=== PATIENT | male | born 1995 | race Caucasian/White ===

== ENCOUNTER → 2019-03-10 | Outpatient (CLI) | payer OTHER ==
--- NOTE | 2019-03-11 09:56 | XR ---
EXAMINATION TYPE: XR cervical spine comp DATE OF EXAM: 03/10/2019 COMPARISON: None HISTORY: R 52 TECHNIQUE: Five-view cervical spine FINDINGS: Vertebral body alignment is normal. Disc height and vertebral body heights are preserved. P revertebral space is normal. Posterior spinal lamellar line is intact. Foramen are patent. IMPRESSION: 1. Normal 5 view cervical spine
--- NOTE | 2019-03-11 09:57 | XR ---
EXAMINATION TYPE: XR lumbosacral spine min 4V DATE OF EXAM: 03/10/2019 COMPARISON: None HISTORY: R 52 TECHNIQUE: Five-view lumbar spine FINDINGS: There 5 lumbar-type vertebral bodies. The pedicles are intact. Disc heights are preserved. Vertebral body heights are preserved. Alignment is normal. Facets are normal. T12 ribs are rudimentary. IMPRESSION: 1. Normal 5 view lumbar spine
--- NOTE | 2019-03-11 09:58 | XR ---
EXAMINATION TYPE: XR thoracic spine 2V DATE OF EXAM: 03/10/2019 COMPARISON: None HISTORY: R 52 TECHNIQUE: Three-view thoracic spine FINDINGS: There are 12 thoracic-type tubal bodies. Pedicles are intact. Disc heights are preserved. V ertebral body heights are preserved. Alignment is normal. IMPRESSION: 1. Normal thoracic spine.
== END | disposition home or self-care (01) ==
LOC: RADXRMAIN 15:42
PROVIDERS: ATTEND Internal Medicine
DX: M54.2 Cervicalgia (principal); M54.5 Low back pain; M54.6 Pain in thoracic spine
CPT/HCPCS: 72050; 72070; 72110

== ENCOUNTER 2019-04-16 14:34 | Inpatient (IN) | payer OTHER ==
[2019-04-16] MEDS ORDERED: SODIUM CHLORIDE 0.9% 1,000 ML IV STA (15:11)
[2019-04-16] MEDS ORDERED: KETOROLAC 30 MG/ML 1 ML VIAL IVP STA (15:13)
--- NOTE | 2019-04-16 15:41 | ED ---
General Adult HPI - General Source: patient Mode of arrival: ambulatory Limitations: no limitations <Kristie Power - Last Filed: 04/16/19 19:33> <Boy Victoria - Last Filed: 04/17/19 08:52> - General Chief complaint: Shortness of Breath Stated complaint: Back pain Time Seen by Provider: 04/16/19 15:00 - History of Present Illness Initial comments: Patient is a 24-year-old male with past medical history of type 1 diabetes presents to emergency room with upper back pain 2 months and shortness of rusty th 1 week. Patient states he went to his PCP about 2 months ago for upper back pain and was started on anti-inflammatory medications for this but they did not work. Patient denies any trauma to his back. He went back last week to his PCP and was started on a short course of steroids which he states increases pain. He finished the steroids this morning. Patient did have x-rays last month of h is entire spine and showed no acute fractures. Patient states he developed shortness of breath about a week ago after starting the steroids. He states at first it was on and off when he was doing things but the last few days it has been increasing. Patient has been in the ER on multiple occasions for DKA. Patient admits to having to urinate more frequently and being really thirsty the past week. Patient denies fever, chills, chest pain, abdominal pain, nausea, vomiting. (Kristie Power) - Related Data Home Medications Medication Instructions Recorded Confirmed Insulin Aspart [NovoLOG Flexpen] See Protocol SQ AC-TID 04/16/19 04/16/19 Insulin Glargine,Hum.rec.anlog 24 unit SQ HS 04/16/19 04/16/19 [Basaglar Kwikpen U-100] Meloxicam [Mobic] 15 mg PO DAILY 04/16/19 04/16/19 tiZANidine HCL [Zanaflex] 4 mg PO Q8HR PRN 04/16/19 04/16/19 Allergies Allergy/AdvReac Type Severity Reaction Status Date / Time No Known Allergies Allergy Verified 04/16/19 14:56 Review of Systems ROS Other: All systems not noted in ROS Statement are negative. <Kristie Power - Last Filed: 06/29/19 19:33> ROS Other: All systems not noted in ROS Statement are negative. <Boy Victoria - Last Filed: 04/17/19 08:52> ROS Statement: Those systems with pertinent positive or pertinent negative responses have been documented in the HPI. Past Medical History Past Medical History: Diabetes Mellitus Additional Past Medical History / Comment(s): BODY ACHES-DENIED ANY FALLS. legally blind left eye. DX WITH DM AT AGE 3 History of Any Multi-Drug Resistant Organisms: None Reported Past Surgical History: No Surgical Hx Reported Additional Past Surgical History / Comment(s): legally blind left eye. Past Anesthesia/Blood Transfusion Reactions: No Reported Reaction Additional Past Anesthesia/Blood Transfusion Reaction / Comment(s): NEVER HAD ANY AA Past Psychological History: No Psychological Hx Reported Smoking Status: Current every day smoker Past Alcohol Use History: None Reported Past Drug Use History: None Reported - Past Family History Father Family Medical History: No Reported History Additional Family Medical History / Comment(s): pt. unaware of any family history due to growing up in foster care <Kristie Power - Last Filed: 04/16/19 19:33> General Exam Limitations: no limitations <Kristie Power - Last Filed: 04/16/19 19:33> - General Exam Comments Initial Comments: GENERAL: Well-appearing, well-nourished and in no acute distress. HEAD: Atraumatic, normocephalic. EYES: Pupils equal round and reactive to light, extraocular movements intact, sclera anicteric, conjunctiva are normal. ENT: TMs normal, nares patent, oropharynx clear without exudates. Moist mucous membranes. NECK: Normal range of motion, supple without lymphadenopathy or JVD. LUNGS: Breath sounds clear to auscultation bilaterally and equal. No wheezes rales or rhonchi. HEART: Regular rate and rhythm without murmurs, rubs or gallops. ABDOMEN: Soft, nontender, normoactive bowel sounds. No guarding, no rebound. No masses appreciated. : Deferred EXTREMITIES: Pain with palpation of the upper traps bilaterally. Bilateral shoulder range of motion is within normal limits. NEUROLOGICAL: Cranial nerves II through XII grossly intact. Normal speech, norm al gait. PSYCH: Normal mood, normal affect. SKIN: Warm, Dry, normal turgor, no rashes or lesions noted. (Kristie Power) Course Vital Signs 04/16/19 04/16/19 04/16/19 14:39 17:15 19:30 Temperature 97.6 F Pulse Rate 116 H 55 L 67 Pulse Rate [ Left Pulse Oximetery] Respiratory 18 18 16 Rate Blood Pressure 101/61 102/75 106/65 Blood Pressure [Left Arm Supine] O2 Sat by Pulse 98 97 96 Oximetry 04/16/19 04/16/19 21:00 21:03 Temperature 98.4 F 98.5 F Pulse Rate 70 Pulse Rate [ 72 Left Pulse Oximetery] Respiratory 16 16 Rate Blood Pressure 103/60 Blood Pressure 110/62 [Left Arm Supine] O2 Sat by Pulse 95 100 Oximetry Medical Decision Making - Lab Data Result diagrams: 04/16/19 13:50 04/16/19 13:50 <Kristie Power - Last Filed: 04/16/19 19:33> - Lab Data Result diagrams: 04/16/19 13:50 04/16/19 20:40 <Boy Victoria - Last Filed: 04/17/19 08:52> - Medical Decision Making Patient is a 24-year-old male presenting to the ED with shortness of breath 1 week. Patient has been admitted before for DKA. Patient states his PCP put him on steroids for the last week for an upper back pain that he's been dealing with 2 months. Patient admits to an increase in urination and thirst in the last week. CBC is WNL, venous pH is 7.39, sodium is 134, potassium is 3.7, glucose is 722. UA reveals 4+ glucose and 1+ ketones. Acetone is positive. Patient's vital signs have been stable during stay. Chest x-ray is without acute process. Case was discussed with Dr. Victoria. Patient will be admitted and started on insulin drip for headache per her glycemia and DKA. Patient is in agreement with this plan. (Kristie Power) - Lab Data Lab Results 04/16/19 04/16/19 04/16/19 Range/Units 13:50 13:50 13:50 WBC 8.0 (3.8-10.6) k/uL RBC 5.06 (4.30-5.90) m/uL Hgb 14.2 (13.0-17.5) gm/dL Hct 42.5 (39.0-53.0) % MCV 83.9 (80.0-100.0) fL MCH 28.1 (25.0-35.0) pg MCHC 33.5 (31.0-37.0) g/dL RDW 13.7 (11.5-15.5) % Plt Count 299 (150-450) k/uL Neutrophils % 66 % Lymphocytes % 23 % Monocytes % 6 % Eosinophils % 2 % Basophils % 1 % Neutrophils # 5.3 (1.3-7.7) k/uL Lymphocytes # 1.8 (1.0-4.8) k/uL Monocytes # 0.5 (0-1.0) k/uL Eosinophils # 0.1 (0-0.7) k/uL Basophils # 0.1 (0-0.2) k/uL VBG pH 7.39 (7.31-7.41) VBG pCO2 45 (37-51) mmHg VBG HCO3 27 (24-28) mmol/L Sodium 134 L (137-145) mmol/L Potassium 3.7 (3.5-5.1) mmol/L Chloride 99 (98-107) mmol/L Carbon Dioxide 26 (22-30) mmol/L Anion Gap 9 mmol/L BUN 16 (9-20) mg/dL Creatinine 0.51 L (0.66-1.25) mg/dL Est GFR (CKD-EPI)AfAm >90 (>60 ml/min/1.73 sqM) Est GFR (CKD-EPI)NonAf >90 (>60 ml/min/1.73 sqM) Glucose 722 H* (74-99) mg/dL POC Glucose (mg/dL) (75-99) mg/dL POC Glu Loan Originator ID Calcium 8.7 (8.4-10.2) mg/dL Magnesium 1.7 (1.6-2.3) mg/dL Total Bilirubin 0.6 (0.2-1.3) mg/dL AST 11 L (17-59) U/L ALT 17 L (21-72) U/L Alkaline Phosphatase 140 H (38-126) U/L Total Protein 6.2 L (6.3-8.2) g/dL Albumin 3.8 (3.5-5.0) g/dL Acetone, Qual Positive (Negative) 04/16/19 Range/Units 15:58 WBC (3.8-10.6) k/uL RBC (4.30-5.90) m/uL Hgb (13.0-17.5) gm/dL Hct (39.0-53.0) % MCV (80.0-100.0) fL MCH (25.0-35.0) pg MCHC (31.0-37.0) g/dL RDW (11.5-15.5) % Plt Count (150-450) k/uL Neutrophils % % Lymphocytes % % Monocytes % % Eosinophils % % Basophils % % Neutrophils # (1.3-7.7) k/uL Lymphocytes # (1.0-4.8) k/uL Monocytes # (0-1.0) k/uL Eosinophils # (0-0.7) k/uL Basophils # (0-0.2) k/uL VBG pH (7.31-7.41) VBG pCO2 (37-51) mmHg VBG HCO3 (24-28) mmol/L Sodium (137-145) mmol/L Potassium (3.5-5.1) mmol/L Chloride (98-107) mmol/L Carbon Dioxide (22-30) mmol/L Anion Gap mmol/L BUN (9-20) mg/dL Creatinine (0.66-1.25) mg/dL Est GFR (CKD-EPI)AfAm (>60 ml/min/1.73 sqM) Est GFR (CKD-EPI)NonAf (>60 ml/min/1.73 sqM) Glucose (74-99) mg/dL POC Glucose (mg/dL) >600 H (75-99) mg/dL POC Glu Loan Originator ID Shmuel, Alejandro Calcium (8.4-10.2) mg/dL Magnesium (1.6-2.3) mg/dL Total Bilirubin (0.2-1.3) mg/dL AST (17-59) U/L ALT (21-72) U/L Alkaline Phosphatase (38-126) U/L Total Protein (6.3-8.2) g/dL Albumin (3.5-5.0) g/dL Acetone, Qual (Negative) Disposition Is patient prescribed a controlled substance at d/c from ED?: No Decision Date: 04/16/19 Decision Time: 18:00 <Kristie Power - Last Filed: 04/16/19 19:33> <Boy Victoria - Last Filed: 04/17/19 08:52> Clinical Impression: Hyperglycemia due to type 1 diabetes mellitus, Diabetic ketoacidosis Disposition: ADMITTED IP TO THIS HOSP Condition: Stable
[2019-04-16 16:08] LABS: Glucose,Whole Blood >600 mg/dL (75-99)
[2019-04-16 16:22] LABS: Basophils # (A) 0.1 k/uL (0-0.2); Basophils % (A) 1 %; Eosinophils # (A) 0.1 k/uL (0-0.7); Eosinophils % (A) 2 %; HCT 42.5 % (39.0-53.0); HGB 14.2 gm/dL (13.0-17.5); Lymphocytes # (A) 1.8 k/uL (1.0-4.8); Lymphocytes % (A) 23 %; MCH 28.1 pg (25.0-35.0); MCHC 33.5 g/dL (31.0-37.0); MCV 83.9 fL (80.0-100.0); Mean Platelet Volume 7.6; Monocytes # (A) 0.5 k/uL (0-1.0); Monocytes % (A) 6 %; Neutrophils # (A) 5.3 k/uL (1.3-7.7); Neutrophils % (A) 66 %; Platelet Count 299 k/uL (150-450); RBC 5.06 m/uL (4.30-5.90); RDW 13.7 % (11.5-15.5); VBG PH 7.39 (7.31-7.41)
[2019-04-16 16:24] LABS: Appearance,Urine Clear (Clear); Bilirubin,Urine Negative (Negative); Blood,Urine Negative (Negative); Color,Urine Colorless; Glucose,Urine (UA) 4+ (Negative); Ketones,Urine 1+ (Negative); Leukocyte Esterase,Urine Negative (Negative); Nitrite,Urine Negative (Negative); Protein,Urine Negative (Negative); Specific Gravity,Urine 1.036 (1.001-1.035); Urobilinogen,Urine <2.0 mg/dL (<2.0)
[2019-04-16 16:35] LABS: ALT 17 U/L (21-72); AST 11 U/L (17-59); African American GFR (CKD) >90 (>60 ml/min/1.73 sqM); Albumin 3.8 g/dL (3.5-5.0); Alkaline Phosphatase 140 U/L (38-126); Anion Gap 9 mmol/L; Blood Urea Nitrogen 16 mg/dL (9-20); Calcium 8.7 mg/dL (8.4-10.2); Carbon Dioxide 26 mmol/L (22-30); Chloride 99 mmol/L (98-107); Magnesium 1.7 mg/dL (1.6-2.3); Potassium 3.7 mmol/L (3.5-5.1); Sodium 134 mmol/L (137-145); Total Bilirubin 0.6 mg/dL (0.2-1.3); Total Protein 6.2 g/dL (6.3-8.2)
[2019-04-16 16:45] LABS: Glucose 722 mg/dL (74-99)
[2019-04-16] MEDS ORDERED: SODIUM CHLORIDE 0.9% 1,000 ML IV ONE (17:01)
--- NOTE | 2019-04-16 17:14 | XR ---
EXAMINATION TYPE: XR chest 2V DATE OF EXAM: 04/16/2019 COMPARISON: NONE HISTORY: Cough and back pain TECHNIQUE: Frontal and lateral views of the chest are obtained. FINDINGS: There is no focal air space opacity, pleural effusion, or pneumothorax seen. The cardiac silhouette size is within normal limits. The osseous structures are intact. IMPRESSION: No acute cardiopulmonary process.
[2019-04-16] MEDS ORDERED: INSULIN REGULAR 100 UNIT in SODIUM CHLORIDE 0.9% 100 ML IV SCH (18:15)
[2019-04-16 18:54] LABS: Glucose,Whole Blood 327 mg/dL (75-99)
[2019-04-16] MEDS: SODIUM CHLORIDE 0.9% 1,000 ML IV SCH ×2 (19:29→22:58)
[2019-04-16 19:38] VITALS: RESP 16
[2019-04-16 19:42] LABS: Glucose,Whole Blood 421 mg/dL (75-99)
[2019-04-16 20:45] LABS: Glucose,Whole Blood 229 mg/dL (75-99)
[2019-04-16 21:10] LABS: African American GFR (CKD) >90 (>60 ml/min/1.73 sqM); Anion Gap 6 mmol/L; Blood Urea Nitrogen 14 mg/dL (9-20); Carbon Dioxide 29 mmol/L (22-30); Chloride 104 mmol/L (98-107); Glucose 230 mg/dL (74-99); Phosphorus 2.4 mg/dL (2.5-4.5); Potassium 4.3 mmol/L (3.5-5.1); Sodium 139 mmol/L (137-145)
[2019-04-16] MEDS: D5-0.45% NACL WITH KCL 20MEQ/L 1,000 ML IV SCH (21:18)
[2019-04-16 22:02] LABS: Glucose,Whole Blood 170 mg/dL (75-99)
[2019-04-16] MEDS ORDERED: tiZANidine 4 MG TAB PO PRN (22:40)
[2019-04-16] MEDS: KETOROLAC 30 MG/ML 1 ML VIAL IVP PRN (22:59)
[2019-04-16 23:02] LABS: Glucose,Whole Blood 104 mg/dL (75-99)
[2019-04-17 00:15] LABS: Glucose,Whole Blood 103 mg/dL (75-99)
[2019-04-17 01:05] LABS: Glucose,Whole Blood 114 mg/dL (75-99)
[2019-04-17 02:15] LABS: Glucose,Whole Blood 95 mg/dL (75-99)
[2019-04-17 03:07] LABS: Glucose,Whole Blood 121 mg/dL (75-99)
[2019-04-17 04:17] LABS: Glucose,Whole Blood 138 mg/dL (75-99)
[2019-04-17] MEDS: SODIUM CHLORIDE 0.9% 1,000 ML IV SCH ×2 (04:47→10:40)
[2019-04-17] MEDS: KETOROLAC 30 MG/ML 1 ML VIAL IVP PRN ×2 (04:49→11:18)
[2019-04-17] MEDS: D5-0.45% NACL WITH KCL 20MEQ/L 1,000 ML IV SCH ×2 (05:04→11:12)
[2019-04-17 05:09] LABS: Glucose,Whole Blood 151 mg/dL (75-99)
[2019-04-17 06:00] LABS: Glucose,Whole Blood 176 mg/dL (75-99)
[2019-04-17 07:15] LABS: Glucose,Whole Blood 202 mg/dL (75-99)
[2019-04-17 08:13] LABS: Glucose,Whole Blood 290 mg/dL (75-99)
[2019-04-17 09:15] LABS: Glucose,Whole Blood 348 mg/dL (75-99)
[2019-04-17 10:16] LABS: Glucose,Whole Blood 332 mg/dL (75-99)
[2019-04-17 11:14] LABS: Glucose,Whole Blood 283 mg/dL (75-99)
[2019-04-17 11:28] VITALS: BP 109/52; PULSE 81; TEMP 98.5
[2019-04-17 12:37] LABS: Glucose,Whole Blood 245 mg/dL (75-99)
[2019-04-17 13:33] LABS: Glucose,Whole Blood 332 mg/dL (75-99)
--- NOTE | 2019-04-17 14:34 | P.HPIM ---
History of Present Illness H&P Date: 04/17/19 Chief Complaint: Hyperglycemia 24-year-old male with past medical history of type 1 diabetes presents to emergency room with upper back pain 2 months and shortness of breath 1 week. Patient states he went to his PCP about 2 months ago for upper back pain and was started on anti-inflammatory medications for this but they did not work. Patient denies any trauma to his back. He went back last week to his PCP and was started on a short course of steroids which he states increases pain. He finished the steroids this morning. Patient did have x-rays last month of his e ntire spine and showed no acute fractures. Patient states he developed shortness of breath about a week ago after starting the steroids. He states at first it was on and off when he was doing things but the last few days it has been increasing. Patient has been in the ER on multiple occasions for DKA. Patient admits to having to urinate more frequently and being really thirsty the past week. Patient denies fever, chills, chest pain, abdominal pain, nausea, vomiting. In the ED workup showed a normal CBC with venous pH of 7.39, sodium of 134, potassium 3.7 and glucose of 722; UA was positive for 4+ glucose and ketones; acetones are positive; patient was started on IV insulin drip and was admitted for further evaluation Review of Systems Constitutional: Denies chills, Denies fever Eyes: denies blurred vision Ears, nose, mouth and throat: Denies epistaxis Cardiovascular: Denies chest pain Respiratory: Denies cough with sputum Gastrointestinal: Denies abdominal pain, Denies nausea, Denies vomiting Past Medical History Past Medical History: Diabetes Mellitus Additional Past Medical History / Comment(s): BODY ACHES-DENIED ANY FALLS. legally blind left eye. DX WITH DM AT AGE 3 History of Any Multi-Drug Resistant Organisms: None Reported Past Surgical History: No Surgical Hx Reported Additional Past Surgical History / Comment(s): legally blind left eye. Past Anesthesia/Blood Transfusion Reactions: No Reported Reaction Additional Past Anesthesia/Blood Transfusion Reaction / Comment(s): NEVER HAD ANY AA Past Psychological History: Anxiety Smoking Status: Current every day smoker Past Alcohol Use History: Occasional Additional Past Alcohol Use History / Comment(s): pt. is a pack a day smoker Past Drug Use History: None Reported - Past Family History Father Family Medical History: No Reported History Additional Family Medical History / Comment(s): pt. unaware of any family history due to growing up in foster care Medications and Allergies Home Medications Medication Instructions Recorded Confirmed Type Insulin Aspart [NovoLOG Flexpen] See Protocol SQ AC-TID 04/16/19 04/16/19 History Insulin Glargine,Hum.rec.anlog 24 unit SQ HS 04/16/19 04/16/19 History [Basaglar Kwikpen U-100] Meloxicam [Mobic] 15 mg PO DAILY 04/16/19 04/16/19 History tiZANidine HCL [Zanaflex] 4 mg PO Q8HR PRN 04/16/19 04/16/19 History Allergies Allergy/AdvReac Type Severity Reaction Status Date / Time No Known Allergies Allergy Verified 04/16/19 14:56 Physical Exam Vitals: Vital Signs Temp Pulse Pulse Resp BP BP Pulse Ox 04/17/19 08:00 98.2 F 70 16 101/56 100 04/17/19 04:00 98.2 F 59 L 16 98/57 97 04/16/19 22:00 59 L 16 04/16/19 21:03 98.5 F 72 16 110/62 100 04/16/19 21:00 98.4 F 70 16 103/60 95 04/16/19 19:30 67 16 106/65 96 04/16/19 17:15 55 L 18 102/75 97 04/16/19 14:39 97.6 F 116 H 18 101/61 98 Intake and Output 04/16/19 04/17/19 04/17/19 22:59 06:59 14:59 Intake Total 25.277 9.539 Balance 25.277 9.539 Intake: Intake, IV Titration 25.277 9.539 Amount Insulin Regular 100 unit 25.277 9.539 In Sodium Chloride 0.9% 100 ml @ 0.1 UNITS/KG/HR 5.727 mls/hr IV .[id number] [facility] Rx#:[id number] Other: Voiding Method Toilet Toilet Toilet # Voids 1 1 # Bowel Movements 1 Weight 58 kg - Constitutional General appearance: Present: average body habitus, cooperative, no acute distress - EENT Eyes: Present: anicteric sclerae, EOMI, PERRLA, normal appearance ENT: Present: hearing grossly normal, normal oropharynx Ears: bilateral: normal - Neck Neck: Present: normal ROM. Absent: lymphadenopathy, rigidity, thyromegaly Carotids: negative: bruit present Thyroid: bilateral: normal size, negative: enlarged, nodule - Respiratory Respiratory: bilateral: CTA, negative: rales, rhonchi, wheezing - Cardiovascular Rhythm: regular Heart sounds: normal: S1, S2 Abnormal Heart Sounds: Absent: systolic murmur, diastolic murmur - Gastrointestinal General gastrointestinal: Present: normal bowel sounds, soft. Absent: distended, organomegaly, tenderness - Genitourinary Genitourinary Comment(s): deferred - Integumentary Integumentary: Present: normal turgor. Absent: jaundiced, rash, ulcer - Neurologic Neurologic: Present: CNII-XII intact. Absent: focal deficits - Musculoskeletal Musculoskeletal: Present: gait normal, strength equal bilaterally - Psychiatric Psychiatric: Present: A&O x's 3, appropriate affect, intact judgment & insight Results CBC & Chem 7: 04/16/19 13:50 04/16/19 20:40 Labs: Abnormal Lab Results - Last 24 Hours (Table) 04/16/19 04/16/19 04/16/19 Range/Units 13:50 15:58 18:47 Sodium 134 L (137-145) mmol/L Creatinine 0.51 L (0.66-1.25) mg/dL Glucose 722 H* (74-99) mg/dL POC Glucose (mg/dL) >600 H 327 H (75-99) mg/dL Phosphorus (2.5-4.5) mg/dL AST 11 L (17-59) U/L ALT 17 L (21-72) U/L Alkaline Phosphatase 140 H (38-126) U/L Total Protein 6.2 L (6.3-8.2) g/dL Ur Specific [place] (1.001-1.035) Urine Glucose (UA) (Negative) Urine Ketones (Negative) 04/16/19 04/16/19 04/16/19 Range/Units 19:32 20:40 20:43 Sodium (137-145) mmol/L Creatinine 0.57 L (0.66-1.25) mg/dL Glucose 230 H (74-99) mg/dL POC Glucose (mg/dL) 421 H 229 H (75-99) mg/dL Phosphorus 2.4 L (2.5-4.5) mg/dL AST (17-59) U/L ALT (21-72) U/L Alkaline Phosphatase (38-126) U/L Total Protein (6.3-8.2) g/dL Ur Specific [place] (1.001-1.035) Urine Glucose (UA) (Negative) Urine Ketones (Negative) 04/16/19 04/16/19 04/16/19 Range/Units 22:00 23:01 Unknown Sodium (137-145) mmol/L Creatinine (0.66-1.25) mg/dL Glucose (74-99) mg/dL POC Glucose (mg/dL) 170 H 104 H (75-99) mg/dL Phosphorus (2.5-4.5) mg/dL AST (17-59) U/L ALT (21-72) U/L Alkaline Phosphatase (38-126) U/L Total Protein (6.3-8.2) g/dL Ur Specific [place] 1.036 H (1.001-1.035) Urine Glucose (UA) 4+ H (Negative) Urine Ketones 1+ H (Negative) 04/17/19 04/17/19 04/17/19 Range/Units 00:13 01:04 03:06 Sodium (137-145) mmol/L Creatinine (0.66-1.25) mg/dL Glucose (74-99) mg/dL POC Glucose (mg/dL) 103 H 114 H 121 H (75-99) mg/dL Phosphorus (2.5-4.5) mg/dL AST (17-59) U/L ALT (21-72) U/L Alkaline Phosphatase (38-126) U/L Total Protein (6.3-8.2) g/dL Ur Specific [place] (1.001-1.035) Urine Glucose (UA) (Negative) Urine Ketones (Negative) 04/17/19 04/17/19 04/17/19 Range/Units 04:15 05:08 05:58 Sodium (137-145) mmol/L Creatinine (0.66-1.25) mg/dL Glucose (74-99) mg/dL POC Glucose (mg/dL) 138 H 151 H 176 H (75-99) mg/dL Phosphorus (2.5-4.5) mg/dL AST (17-59) U/L ALT (21-72) U/L Alkaline Phosphatase (38-126) U/L Total Protein (6.3-8.2) g/dL Ur Specific [place] (1.001-1.035) Urine Glucose (UA) (Negative) Urine Ketones (Negative) 04/17/19 04/17/19 04/17/19 Range/Units 07:02 08:11 09:11 Sodium (137-145) mmol/L Creatinine (0.66-1.25) mg/dL Glucose (74-99) mg/dL POC Glucose (mg/dL) 202 H 290 H 348 H (75-99) mg/dL Phosphorus (2.5-4.5) mg/dL AST (17-59) U/L ALT (21-72) U/L Alkaline Phosphatase (38-126) U/L Total Protein (6.3-8.2) g/dL Ur Specific [place] (1.001-1.035) Urine Glucose (UA) (Negative) Urine Ketones (Negative) 04/17/19 Range/Units 10:13 Sodium (137-145) mmol/L Creatinine (0.66-1.25) mg/dL Glucose (74-99) mg/dL POC Glucose (mg/dL) 332 H (75-99) mg/dL Phosphorus (2.5-4.5) mg/dL AST (17-59) U/L ALT (21-72) U/L Alkaline Phosphatase (38-126) U/L Total Protein (6.3-8.2) g/dL Ur Specific [place] (1.001-1.035) Urine Glucose (UA) (Negative) Urine Ketones (Negative) Thrombosis Risk Factor Assmnt - Choose All That Apply Any of the Below Risk Factors Present?: No Other Risk Factors: No Other congenital or acquired thrombophilia - If yes, enter type in comment: No Thrombosis Risk Factor Assessment Level: Very Low Risk Assessment and Plan Assessment: 1. DKA/hyperglycemia possibly secondary to steroid use - Patient was hydrated with IV fluid resuscitation along with things IV insulin drip per protocol with close monitoring of blood glucose and electrolytes and CO2 monitoring - Labs reviewed this morning showing improved glycemic control with closing of a 9 And CO2 of 29 Patient has fair oral intake with improved blood sugars and will be discharged home to continue with current regimen 2. Chronic back pain; continue with home medications 3. DVT prophylaxis CODE STATUS; full code Time with Patient: Greater than 30
--- NOTE | 2019-04-17 14:37 | P.DS ---
Providers Date of admission: 04/16/19 18:01 Expected date of discharge: 04/17/19 Attending physician: Charline Gardner Primary care physician: [facility] Hospital Course: 24-year-old male with past medical history of type 1 diabetes presents to emergency room with upper back pain 2 months and shortness of breath 1 week. Patient states he went to his PCP about 2 months ago for upper back pain and was started on anti-inflammatory medications for this but they did not work. Patient denies any trauma to his back. He went back last week to his PCP and was started on a short course of steroids which he states increases pain. He finished the steroids this morning. Patient did have x-rays last month of his entire spine and showed no acute fractures. Patient states he developed shortness of breath about a week ago after starting the steroids. He states at first it was on and off when he was doing things but the last few days it has been increasing. Patient has been in the ER on multiple occasions for DKA. Patient admits to having to urinate more frequently and being really thirsty the past week. Patient denies fever, chills, chest pain, abdominal pain, nausea, vomiting. In the ED workup showed a normal CBC with venous pH of 7.39, sodium of 134, potassium 3.7 and glucose of 722; UA was positive for 4+ glucose and ketones; acetones are positive; patient was started on IV insulin drip and was admitted for further evaluation - Patient was hydrated with IV fluid resuscitation along with things IV insulin drip per protocol with close monitoring of blood glucose and electrolytes and CO2 monitoring - Labs reviewed this morning showing improved glycemic control with closing of a 9 And CO2 of 29 Patient has fair oral intake with improved blood sugars and will be discharged home to continue with current regimen Patient Condition at Discharge: Stable Plan - Discharge Summary New Discharge Prescriptions: Continue tiZANidine HCL [Zanaflex] 4 mg PO Q8HR PRN PRN Reason: Muscle Spasm Meloxicam [Mobic] 15 mg PO DAILY Insulin Glargine,Hum.rec.anlog [Kobeaglmiko Ryan U-100] 24 unit SQ HS Insulin Aspart [NovoLOG Flexpen] See Protocol SQ AC-TID Discharge Medication List Insulin Aspart [NovoLOG Flexpen] See Protocol SQ AC-TID 04/16/19 [History] Insulin Glargine,Hum.rec.anlog [Kobekimmiko Wongjenniffer U-100] 24 unit SQ HS 04/16/19 [History] Meloxicam [Mobic] 15 mg PO DAILY 04/16/19 [History] tiZANidine HCL [Zanaflex] 4 mg PO Q8HR PRN 04/16/19 [History] Follow up Appointment(s)/Referral(s): Poonam Sullivan MD [Primary Care Provider] - 1-2 days (Pt able to make appointment, as the office is closed.) Patient Instructions/Handouts: Diabetic Ketoacidosis (DC) Discharge Disposition: HOME SELF-CARE
== END 2019-04-17 14:38 | disposition home or self-care (01) | DRG 639 ==
LOC: EC 14:34 → 3SCARD 18:01 → UNDODISIN 18:35 → 3SCARD 21:04
PROVIDERS: ADMIT Hospitalist; ATTEND Hospitalist
DX: E10.10 Type 1 diabetes mellitus with ketoacidosis without coma (principal); F17.200 Nicotine dependence, unspecified, uncomplicated; F41.9 Anxiety disorder, unspecified; G89.29 Other chronic pain; M54.6 Pain in thoracic spine; H54.62 Unqualified visual loss, left eye, normal vision right eye; T38.0X5A Adverse effect of glucocorticoids and synthetic analogues, initial encounter; Z79.1 Long term (current) use of non-steroidal anti-inflammatories (NSAID); Z79.4 Long term (current) use of insulin
CPT/HCPCS: 36415; 71046; 80051; 80053; 81003; 82009; 82565; 82803; 82947; 83735; 84100; 84520; 85025; 96361; 96374; 99285

== ENCOUNTER 2019-05-30 15:23 | Inpatient (IN) | payer OTHER ==
[2019-05-30] MEDS ORDERED: SODIUM CHLORIDE 0.9% 1,000 ML IV STA (16:33)
[2019-05-30 16:49] LABS: Glucose,Whole Blood >600 mg/dL (75-99)
[2019-05-30] MEDS ORDERED: SODIUM CHLORIDE 0.9% 1,000 ML IV ONE (16:57)
[2019-05-30] MEDS ORDERED: INSULIN REGULAR BOLUS (FROM DRIP BAG) IV ONE (16:57)
--- NOTE | 2019-05-30 17:00 | ED ---
General Adult HPI - General Chief complaint: Recheck/Abnormal Lab/Rx Stated complaint: Hyperglycemia Time Seen by Provider: 05/30/19 16:19 Source: patient, RN notes reviewed Mode of arrival: EMS Limitations: no limitations - History of Present Illness Initial comments: Patient is a 24-year-old male presenting to the emergency department with complaints of hyperglycemia. Patient states blood sugar normally runs in the mid upper 300s. May been running a little bit higher recently. Patient states today while outside waiting for the bus he did not feel well. Patient complains of thirst and nausea. Patient had an episode where he almost passed out. Patient does not feel that way at this time however still does not feel well. Patient has been taking his insulin. Patient does not use a pump. - Related Data Home Medications Medication Instructions Recorded Confirmed Insulin Aspart [NovoLOG Flexpen] See Protocol SQ AC-TID 04/16/19 05/30/19 Insulin Glargine,Hum.rec.anlog 24 unit SQ HS 04/16/19 05/30/19 [Basaglar Kwikpen U-100] Allergies Allergy/AdvReac Type Severity Reaction Status Date / Time No Known Allergies Allergy Verified 05/30/19 16:05 Review of Systems ROS Statement: Those systems with pertinent positive or pertinent negative responses have been documented in the HPI. ROS Other: All systems not noted in ROS Statement are negative. Constitutional: Denies: fever Eyes: Denies: eye pain ENT: Denies: ear pain Respiratory: Denies: cough Cardiovascular: Denies: palpitations Endocrine: Reports: fatigue Gastrointestinal: Reports: nausea. Denies: abdominal pain, vomiting Genitourinary: Denies: dysuria Musculoskeletal: Denies: back pain Skin: Denies: rash Neurological: Denies: confusion Past Medical History Past Medical History: Diabetes Mellitus Additional Past Medical History / Comment(s): BODY ACHES-DENIED ANY FALLS. legally blind left eye. DX WITH DM AT AGE 3 History of Any Multi-Drug Resistant Organisms: None Reported Past Surgical History: No Surgical Hx Reported Additional Past Surgical History / Comment(s): legally blind left eye. Past Anesthesia/Blood Transfusion Reactions: No Reported Reaction Additional Past Anesthesia/Blood Transfusion Reaction / Comment(s): NEVER HAD ANY AA Past Psychological History: Anxiety Smoking Status: Current every day smoker Past Alcohol Use History: Occasional Past Drug Use History: None Reported - Past Family History Father Family Medical History: No Reported History Additional Family Medical History / Comment(s): pt. unaware of any family history due to growing up in foster care General Exam Limitations: no limitations General appearance: alert, in no apparent distress Head exam: Present: atraumatic Eye exam: Present: normal appearance ENT exam: Present: mucous membranes dry Neck exam: Present: normal inspection Respiratory exam: Present: normal lung sounds bilaterally Cardiovascular Exam: Present: tachycardia GI/Abdominal exam: Present: soft. Absent: distended, tenderness Extremities exam: Present: normal inspection Neurological exam: Present: alert, oriented X3, CN II-XII intact. Absent: motor sensory deficit Expanded Motor strength exam: RUE: 5, LUE: 5, RLE: 5, LLE: 5 Psychiatric exam: Present: normal affect, normal mood Skin exam: Present: normal color Course Vital Signs 05/30/19 05/30/19 15:51 18:02 Temperature 97.8 F Pulse Rate 101 H Respiratory 18 20 Rate Blood Pressure 105/51 90/43 O2 Sat by Pulse 97 94 L Oximetry - Reevaluation(s) Reevaluation #1: 05/30/19 17:50 Patient reevaluated and updated. Case discussed with Dr. bass, covering for Dr. waters, who will admit. 05/30/19 18:16 Case was discussed with Dr. Pitts, who will consult. EKG Findings - EKG Comments: EKG Findings:: Normal sinus rhythm 95. CA 136. QRS 92. QT 364. QTC 457. Normal axis. Normal QRS. No acute ST change. Medical Decision Making - Lab Data Result diagrams: 05/30/19 16:22 05/30/19 16:22 Lab Results 05/30/19 05/30/19 05/30/19 Range/Units 16:22 16:22 16:22 WBC 13.5 H (3.8-10.6) k/uL RBC 4.84 (4.30-5.90) m/uL Hgb 13.9 (13.0-17.5) gm/dL Hct 43.2 (39.0-53.0) % MCV 89.2 D (80.0-100.0) fL MCH 28.8 (25.0-35.0) pg MCHC 32.3 (31.0-37.0) g/dL RDW 14.3 (11.5-15.5) % Plt Count 397 (150-450) k/uL Neutrophils % 87 % Lymphocytes % 9 % Monocytes % 2 % Eosinophils % 0 % Basophils % 1 % Neutrophils # 11.8 H (1.3-7.7) k/uL Lymphocytes # 1.2 (1.0-4.8) k/uL Monocytes # 0.3 (0-1.0) k/uL Eosinophils # 0.1 (0-0.7) k/uL Basophils # 0.1 (0-0.2) k/uL Sodium 130 L (137-145) mmol/L Potassium 6.0 H (3.5-5.1) mmol/L Chloride 96 L (98-107) mmol/L Carbon Dioxide 8 L* (22-30) mmol/L Anion Gap 26 mmol/L BUN 27 H (9-20) mg/dL Creatinine 0.80 (0.66-1.25) mg/dL Est GFR (CKD-EPI)AfAm >90 (>60 ml/min/1.73 sqM) Est GFR (CKD-EPI)NonAf >90 (>60 ml/min/1.73 sqM) Glucose 681 H* (74-99) mg/dL POC Glucose (mg/dL) (75-99) mg/dL POC Glu Clinical Services Manager ID Calcium 9.4 (8.4-10.2) mg/dL Total Bilirubin 0.7 (0.2-1.3) mg/dL AST 18 (17-59) U/L ALT 22 (21-72) U/L Alkaline Phosphatase 192 H (38-126) U/L Total Protein 6.7 (6.3-8.2) g/dL Albumin 4.0 (3.5-5.0) g/dL Urine Color Colorless Urine Appearance Clear (Clear) Urine pH 5.0 (5.0-8.0) Ur Specific [place] 1.027 (1.001-1.035) Urine Protein Negative (Negative) Urine Glucose (UA) 4+ H (Negative) Urine Ketones 4+ H (Negative) Urine Blood Negative (Negative) Urine Nitrite Negative (Negative) Urine Bilirubin Negative (Negative) Urine Urobilinogen <2.0 (<2.0) mg/dL Ur Leukocyte Esterase Negative (Negative) Acetone, Qual Positive (Negative) 05/30/19 Range/Units 16:44 WBC (3.8-10.6) k/uL RBC (4.30-5.90) m/uL Hgb (13.0-17.5) gm/dL Hct (39.0-53.0) % MCV (80.0-100.0) fL MCH (25.0-35.0) pg MCHC (31.0-37.0) g/dL RDW (11.5-15.5) % Plt Count (150-450) k/uL Neutrophils % % Lymphocytes % % Monocytes % % Eosinophils % % Basophils % % Neutrophils # (1.3-7.7) k/uL Lymphocytes # (1.0-4.8) k/uL Monocytes # (0-1.0) k/uL Eosinophils # (0-0.7) k/uL Basophils # (0-0.2) k/uL Sodium (137-145) mmol/L Potassium (3.5-5.1) mmol/L Chloride (98-107) mmol/L Carbon Dioxide (22-30) mmol/L Anion Gap mmol/L BUN (9-20) mg/dL Creatinine (0.66-1.25) mg/dL Est GFR (CKD-EPI)AfAm (>60 ml/min/1.73 sqM) Est GFR (CKD-EPI)NonAf (>60 ml/min/1.73 sqM) Glucose (74-99) mg/dL POC Glucose (mg/dL) >600 H (75-99) mg/dL POC Glu Clinical Services Manager ID Devin Barney Calcium (8.4-10.2) mg/dL Total Bilirubin (0.2-1.3) mg/dL AST (17-59) U/L ALT (21-72) U/L Alkaline Phosphatase (38-126) U/L Total Protein (6.3-8.2) g/dL Albumin (3.5-5.0) g/dL Urine Color Urine Appearance (Clear) Urine pH (5.0-8.0) Ur Specific [place] (1.001-1.035) Urine Protein (Negative) Urine Glucose (UA) (Negative) Urine Ketones (Negative) Urine Blood (Negative) Urine Nitrite (Negative) Urine Bilirubin (Negative) Urine Urobilinogen (<2.0) mg/dL Ur Leukocyte Esterase (Negative) Acetone, Qual (Negative) Critical Care Time Critical Care Time: Yes Total Critical Care Time: 33 Disposition Clinical Impression: Diabetic ketoacidosis Disposition: ADMITTED IP TO THIS HOSP Is patient prescribed a controlled substance at d/c from ED?: No Decision Time: 17:50
[2019-05-30 17:02] LABS: Appearance,Urine Clear (Clear); Bilirubin,Urine Negative (Negative); Blood,Urine Negative (Negative); Color,Urine Colorless; Glucose,Urine (UA) 4+ (Negative); Leukocyte Esterase,Urine Negative (Negative); Nitrite,Urine Negative (Negative); Protein,Urine Negative (Negative); Specific Gravity,Urine 1.027 (1.001-1.035); Urobilinogen,Urine <2.0 mg/dL (<2.0)
[2019-05-30 17:05] LABS: Basophils # (A) 0.1 k/uL (0-0.2); Basophils % (A) 1 %; Eosinophils # (A) 0.1 k/uL (0-0.7); Eosinophils % (A) 0 %; HCT 43.2 % (39.0-53.0); HGB 13.9 gm/dL (13.0-17.5); Lymphocytes # (A) 1.2 k/uL (1.0-4.8); Lymphocytes % (A) 9 %; MCH 28.8 pg (25.0-35.0); MCHC 32.3 g/dL (31.0-37.0); Mean Platelet Volume 8.2; Monocytes # (A) 0.3 k/uL (0-1.0); Monocytes % (A) 2 %; Neutrophils # (A) 11.8 k/uL (1.3-7.7); Neutrophils % (A) 87 %; Platelet Count 397 k/uL (150-450); RBC 4.84 m/uL (4.30-5.90); RDW 14.3 % (11.5-15.5); WBC 13.5 k/uL (3.8-10.6)
[2019-05-30 17:10] LABS: MCV 89.2 fL (80.0-100.0)
[2019-05-30 17:11] LABS: ALT 22 U/L (21-72); AST 18 U/L (17-59); African American GFR (CKD) >90 (>60 ml/min/1.73 sqM); Alkaline Phosphatase 192 U/L (38-126); Anion Gap 26 mmol/L; Blood Urea Nitrogen 27 mg/dL (9-20); Calcium 9.4 mg/dL (8.4-10.2); Chloride 96 mmol/L (98-107); Sodium 130 mmol/L (137-145); Total Bilirubin 0.7 mg/dL (0.2-1.3); Total Protein 6.7 g/dL (6.3-8.2)
[2019-05-30 17:12] LABS: Ketones,Urine 4+ (Negative)
[2019-05-30 17:30] LABS: Carbon Dioxide 8 mmol/L (22-30)
[2019-05-30 17:31] LABS: Glucose 681 mg/dL (74-99)
[2019-05-30] MEDS: INSULIN REGULAR 100 UNIT in SODIUM CHLORIDE 0.9% 100 ML IV SCH (17:59)
[2019-05-30] MEDS ORDERED: NALOXONE 0.4 MG/ML 1 ML VIAL IV PRN (18:03)
--- NOTE | 2019-05-30 18:24 | XR ---
EXAMINATION TYPE: XR chest 2V DATE OF EXAM: 05/30/2019 COMPARISON: 04/16/2019 HISTORY: Weakness TECHNIQUE: Frontal and lateral views of the chest are obtained. FINDINGS: Heart and mediastinum are normal. Lungs are clear. Diaphragm is normal. Bony thorax appear s normal. IMPRESSION: Normal chest. No change.
[2019-05-30 18:53] LABS: Glucose,Whole Blood 406 mg/dL (75-99)
[2019-05-30 19:42] LABS: Glucose,Whole Blood 347 mg/dL (75-99)
[2019-05-30] MEDS: SODIUM CHLORIDE 0.9% 1,000 ML IV SCH ×2 (20:17→21:31)
[2019-05-30 20:58] LABS: African American GFR (CKD) >90 (>60 ml/min/1.73 sqM); Anion Gap 19 mmol/L; Blood Urea Nitrogen 25 mg/dL (9-20); Calcium 9.5 mg/dL (8.4-10.2); Carbon Dioxide 12 mmol/L (22-30); Chloride 106 mmol/L (98-107); Glucose 271 mg/dL (74-99); Potassium 4.6 mmol/L (3.5-5.1); Sodium 137 mmol/L (137-145)
[2019-05-30 21:10] LABS: Glucose,Whole Blood 273 mg/dL (75-99)
[2019-05-30] MEDS: D5-0.45% NACL WITH KCL 20MEQ/L 1,000 ML IV SCH (21:30)
[2019-05-30] MEDS: PANTOPRAZOLE 40 MG/10 ML VIAL IV SCH (21:31)
[2019-05-30 22:02] LABS: Glucose,Whole Blood 196 mg/dL (75-99)
[2019-05-30 23:16] LABS: Glucose,Whole Blood 181 mg/dL (75-99)
[2019-05-30 23:16] LABS: Glucose,Whole Blood 168 mg/dL (75-99)
[2019-05-30] MEDS: HEPARIN SODIUM,PORCINE 5,000 UNIT/ML 1 ML VIAL SQ SCH (23:53)
[2019-05-30 23:57] LABS: Glucose,Whole Blood 169 mg/dL (75-99)
[2019-05-31 00:54] LABS: African American GFR (CKD) >90 (>60 ml/min/1.73 sqM); Anion Gap 10 mmol/L; Blood Urea Nitrogen 21 mg/dL (9-20); Carbon Dioxide 18 mmol/L (22-30); Chloride 107 mmol/L (98-107); Glucose 150 mg/dL (74-99); Sodium 135 mmol/L (137-145)
[2019-05-31 01:03] LABS: Glucose,Whole Blood 145 mg/dL (75-99)
[2019-05-31 02:11] LABS: Glucose,Whole Blood 129 mg/dL (75-99)
[2019-05-31 02:49] LABS: Glucose,Whole Blood 123 mg/dL (75-99)
[2019-05-31 04:22] LABS: Glucose,Whole Blood 119 mg/dL (75-99)
[2019-05-31] MEDS: SODIUM CHLORIDE 0.9% 1,000 ML IV SCH (04:50)
[2019-05-31 05:06] LABS: Glucose,Whole Blood 108 mg/dL (75-99)
[2019-05-31 05:41] LABS: Basophils # (A) 0.1 k/uL (0-0.2); Basophils % (A) 1 %; Eosinophils # (A) 0.2 k/uL (0-0.7); Eosinophils % (A) 2 %; HCT 36.8 % (39.0-53.0); HGB 12.3 gm/dL (13.0-17.5); Lymphocytes # (A) 3.5 k/uL (1.0-4.8); Lymphocytes % (A) 36 %; MCH 28.4 pg (25.0-35.0); MCHC 33.5 g/dL (31.0-37.0); MCV 84.8 fL (80.0-100.0); Mean Platelet Volume 6.8; Monocytes # (A) 0.5 k/uL (0-1.0); Monocytes % (A) 5 %; Neutrophils # (A) 5.4 k/uL (1.3-7.7); Neutrophils % (A) 55 %; Platelet Count 342 k/uL (150-450); RBC 4.34 m/uL (4.30-5.90); RDW 14.4 % (11.5-15.5); WBC 9.9 k/uL (3.8-10.6)
[2019-05-31 05:56] LABS: African American GFR (CKD) >90 (>60 ml/min/1.73 sqM); Anion Gap 8 mmol/L; Blood Urea Nitrogen 19 mg/dL (9-20); Carbon Dioxide 19 mmol/L (22-30); Chloride 108 mmol/L (98-107); Glucose 105 mg/dL (74-99); Potassium 4.5 mmol/L (3.5-5.1); Sodium 135 mmol/L (137-145)
[2019-05-31 06:28] LABS: Glucose,Whole Blood 104 mg/dL (75-99)
[2019-05-31] MEDS ORDERED: INSULIN DETEMIR (LEVEMIR) 100 UNIT/ML SYR SQ SCH ×2 (07:00→08:00)
[2019-05-31 07:05] LABS: Glucose,Whole Blood 103 mg/dL (75-99)
[2019-05-31] MEDS: INSULIN ASPART (NovoLOG) 100 UNIT/ML VIAL SQ SCH ×2 (07:21→12:45)
[2019-05-31] MEDS: INSULIN REGULAR 100 UNIT in SODIUM CHLORIDE 0.9% 100 ML IV SCH (07:29)
[2019-05-31] MEDS: D5-0.45% NACL WITH KCL 20MEQ/L 1,000 ML IV SCH (07:30)
--- NOTE | 2019-05-31 07:49 | P.CNPUL ---
History of Present Illness Consult date: 05/31/19 Chief complaint: Altered mentation, DKA, hyperglycemia History of present illness: 24-year-old type I diabetic presented yesterday with elevated blood sugar and DKA. The patient apparently runs a high blood sugar. The patient takes glargine insulin 24 units at bedtime along with NovoLog according to the skin and he denies skipping any of his doses. Nevertheless he has been a brittle diabetic and he hasn't been seeing in good control and his blood sugar. He typically runs a elevated blood sugar. In the ED, the patient was hemodynamical ly stable. His serum bicarbonate was down to 8. He had a positive anion gap. His sugar was 681 on the left. White cell count was at 13.5. The potassium level was 6.0. The patient was suspected with IV fluids. The patient was treated according to the DKA protocol. The patient is still in the intensive care unit. His morning, the patient's serum bicarbonate is up to 19. The patient has a potassium of 4.5. Anion gap is at 8. Blood sugar is down to 103. The patient is on D5 half-normal saline at the rate of 150 mL an hour and the patient on insulin drip at 2 units an hour. He is doing well. He is conscious and awake. Nausea. No vomiting. No abdominal pain. No fever. No chills. No hemodynamic instability. No other significant issues overnight and this was a [facility] DKA Review of Systems Constitutional: Reports fatigue, Reports lethargy, Reports poor appetite, Reports weakness Eyes: bilateral blurred vision, bilateral decreased vision (When the blood sugars go up), denies as per HPI, denies bulging eye, denies diplopia, denies discharge, denies dry eye, denies irritation, denies itching, denies pain, denies photophobia, denies loss of peripheral vision, denies loss of vision, denies tunnel vision/blind spots Ears: deny: decreased hearing, ear discharge, earache, tinnitus Ears, nose, mouth and throat: Denies headache, Denies sore throat Breasts: absent: as per HPI, gynecomastia Cardiovascular: Denies chest pain, Denies shortness of breath Respiratory: Reports as per HPI Gastrointestinal: Reports as per HPI Genitourinary: Reports as per HPI Musculoskeletal: Reports as per HPI Musculoskeletal: absent: ankle pain, ankle stiffness, ankle swelling Integumentary: Denies pruritus, Denies rash Neurological: Reports as per HPI Psychiatric: Reports as per HPI Endocrine: Reports excessive sweating, Reports excessive thirst, Reports high blood sugars, Reports nocturia, Reports polydipsia, Reports polyuria Hematologic/Lymphatic: Reports as per HPI Allergic/Immunologic: Reports as per HPI Past Medical History Past Medical History: Diabetes Mellitus Additional Past Medical History / Comment(s): Patient is legally blind in left eye, peripheral neuropathy, history of noncompliance, history of smoking, previous history of DKA History of Any Multi-Drug Resistant Organisms: None Reported Past Surgical History: No Surgical Hx Reported Additional Past Surgical History / Comment(s): legally blind left eye. Past Anesthesia/Blood Transfusion Reactions: No Reported Reaction Additional Past Anesthesia/Blood Transfusion Reaction / Comment(s): NEVER HAD ANY Anesthsia Past Psychological History: Anxiety Smoking Status: Current every day smoker Past Alcohol Use History: Occasional Additional Past Alcohol Use History / Comment(s): pt. is a pack a day smoker Past Drug Use History: None Reported - Past Family History Father Family Medical History: No Reported History Additional Family Medical History / Comment(s): pt. unaware of any family history due to growing up in foster care Medications and Allergies Home Medications Medication Instructions Recorded Confirmed Type Insulin Aspart [NovoLOG Flexpen] See Protocol SQ AC-TID 04/16/19 05/30/19 History Insulin Glargine,Hum.rec.anlog 24 unit SQ HS 04/16/19 05/30/19 History [Basaglar Kwikpen U-100] Allergies Allergy/AdvReac Type Severity Reaction Status Date / Time No Known Allergies Allergy Verified 05/30/19 16:05 Physical Exam Vitals: Vital Signs Temp Pulse Resp BP Pulse Ox 05/31/19 07:00 95 9 L 95/57 98 05/31/19 06:00 78 14 104/64 97 05/31/19 05:00 74 15 104/64 98 05/31/19 04:00 98 F 79 13 89/46 97 05/31/19 03:00 85 15 97/43 97 05/31/19 02:00 84 15 96/54 97 05/31/19 01:00 90 20 95/51 96 05/31/19 00:00 97.9 F 84 15 92/60 97 08/12/19 23:00 86 16 95/58 96 05/30/19 22:00 92 18 97/63 97 05/30/19 21:00 92 20 97/63 97 05/30/19 20:00 98.1 F 96 16 100/57 100 05/30/19 19:42 97.4 F L 98 19 90/46 96 05/30/19 18:02 20 90/43 94 L 05/30/19 15:51 97.8 F 101 H 18 105/51 97 Intake and Output 05/30/19 05/31/19 05/31/19 22:59 06:59 14:59 Intake Total 671.870 3377.802 159.42 Output Total 1000 0 0 Balance -550.286 4599.802 159.42 Intake: IV 550 1200 150 D5-0.45% NaCl with KCl 150 1200 150 20Meq/l 1,000 ml @ 150 mls/hr IV .[id number] SAMUEL Rx# :[id number] Sodium Chloride 0.9% 1, 400 000 ml @ 200 mls/hr IV . Q5H SAMUEL Rx#:[id number] Intake, IV Titration 27.801 25.802 9.42 Amount Insulin Regular 100 unit 27.801 25.802 9.42 In Sodium Chloride 0.9% 100 ml @ 0.1 UNITS/KG/HR 7.284 mls/hr IV .[id number] SAMUEL Rx#:[id number] Output: Urine 1000 0 0 Other: # Voids 0 0 0 Weight 72.121 kg 55.8 kg The patient appeared well nourished and normally developed. Vital signs as documented. Head exam is unremarkable. No scleral icterus or corneal arcus noted . Neck is without jugular venous distension, thyromegaly, or carotid bruits. Carotid upstrokes are brisk bilaterally. Lungs are clear to auscultation and percussion. Cardiac exam reveals the PMI to be normally sized and situated. Rhythm is regular. First and second heart sounds normal. No murmurs, rubs or gallops. Abdominal exam reveals normal bowel sounds, no masses, no organomegaly and no aortic enlargement. Extremities are nonedematous and both femoral and pedal pulses are normal.Examination of the skin revealed no evidence of significant rashes, suspicious appearing nevi or other concerning lesions. Neurologically the patient is awake and alert and there is no focal neurological deficit. Results - Laboratory Findings CBC and BMP: 05/31/19 04:23 05/31/19 04:23 Abnormal lab findings: Abnormal Labs 05/30/19 05/30/19 05/30/19 16:22 16:22 16:22 WBC 13.5 H Hgb Hct Neutrophils # 11.8 H Sodium 130 L Potassium 6.0 H Chloride 96 L Carbon Dioxide 8 L* BUN 27 H Creatinine Glucose 681 H* POC Glucose (mg/dL) Alkaline Phosphatase 192 H Urine Glucose (UA) 4+ H Urine Ketones 4+ H 05/30/19 05/30/19 05/30/19 16:44 18:51 19:39 WBC Hgb Hct Neutrophils # Sodium Potassium Chloride Carbon Dioxide BUN Creatinine Glucose POC Glucose (mg/dL) >600 H 406 H 347 H Alkaline Phosphatase Urine Glucose (UA) Urine Ketones 05/30/19 05/30/19 05/30/19 20:21 20:44 21:47 WBC Hgb Hct Neutrophils # Sodium Potassium Chloride Carbon Dioxide 12 L BUN 25 H Creatinine 0.63 L Glucose 271 H POC Glucose (mg/dL) 273 H 196 H Alkaline Phosphatase Urine Glucose (UA) Urine Ketones 05/30/19 05/30/19 05/30/19 22:47 23:02 23:54 WBC Hgb Hct Neutrophils # Sodium Potassium Chloride Carbon Dioxide BUN Creatinine Glucose POC Glucose (mg/dL) 168 H 181 H 169 H Alkaline Phosphatase Urine Glucose (UA) Urine Ketones 05/31/19 05/31/19 05/31/19 00:28 01:00 02:08 WBC Hgb Hct Neutrophils # Sodium 135 L Potassium Chloride Carbon Dioxide 18 L BUN 21 H Creatinine 0.49 L Glucose 150 H POC Glucose (mg/dL) 145 H 129 H Alkaline Phosphatase Urine Glucose (UA) Urine Ketones 05/31/19 05/31/19 05/31/19 02:46 04:19 04:23 WBC Hgb 12.3 L Hct 36.8 L Neutrophils # Sodium Potassium Chloride Carbon Dioxide BUN Creatinine Glucose POC Glucose (mg/dL) 123 H 119 H Alkaline Phosphatase Urine Glucose (UA) Urine Ketones 05/31/19 05/31/19 05/31/19 04:23 05:04 06:15 WBC Hgb Hct Neutrophils # Sodium 135 L Potassium Chloride 108 H Carbon Dioxide 19 L BUN Creatinine 0.42 L Glucose 105 H POC Glucose (mg/dL) 108 H 104 H Alkaline Phosphatase Urine Glucose (UA) Urine Ketones 05/31/19 07:02 WBC Hgb Hct Neutrophils # Sodium Potassium Chloride Carbon Dioxide BUN Creatinine Glucose POC Glucose (mg/dL) 103 H Alkaline Phosphatase Urine Glucose (UA) Urine Ketones Assessment and Plan Plan: 1 acute diabetic ketoacidosis in a patient with known history of type 1 diabetes mellitus that has been poorly controlled on outpatient basis 2 anion gap metabolic acidosis secondary to above, improved 3 hyperglycemia secondary to above, improved 4 history of noncompliance 5 history of peripheral neuropathy 6 history of blindness in the left eye 7 smoker Plan We'll switch this patient to Levemir insulin 20 units and the first dose will be given. We'll continue with sliding scale coverage. We'll offer him a diet. We'll stop the insulin drip. We'll stop the IV fluids. He may leave the ICU at a later stage. Diabetic education needs to be done.
[2019-05-31] MEDS: HEPARIN SODIUM,PORCINE 5,000 UNIT/ML 1 ML VIAL SQ SCH (08:08)
[2019-05-31] MEDS: PANTOPRAZOLE 40 MG/10 ML VIAL IV SCH (08:11)
[2019-05-31] MEDS ORDERED: D5-0.45% NACL WITH KCL 20MEQ/L 1,000 ML IV SCH (08:15)
[2019-05-31 08:41] VITALS: TEMP 98.5
[2019-05-31 09:01] LABS: Glucose,Whole Blood 173 mg/dL (75-99)
[2019-05-31 09:22] VITALS: BP 95/58; PULSE 82; RESP 13
[2019-05-31 09:58] VITALS: BMI 19.3
--- NOTE | 2019-05-31 11:48 | P.HPIM ---
History of Present Illness 24-year-old the type I diabetic martinez gentleman came in with complaints of elevated blood sugars found to be in DKA patient was started on IV insulin patient received B 20 units today morning. Patient was transitioned to subcutan eous insulin and carb counting pre-meal insulin. Patient appears to be noncompliant at home although he denies that. Patient denied any fever chills nausea vomiting abdominal pain dysuria. No signs or symptoms of infection. Patient blood sugars normally runs in 300s doesn't have an artist's representative that he sees. Patient is on the glargine 24 units at home which am an increased to 30 units. Patient will be discharged today and gap resolved but patient still has low serum bicarbonate secondary to hyperchloremia. All the left leg abnormality resolved with resolution of her DKA. received diabetic education. Tried to refer him to an artist's representative because of his insurance issues I'm unable to refer him to endocrinology. His long-acting insulin will be increased to 30 units and he'll continue carb counting and takes 1 unit of insulin for 10 g of carb. Patient will take only 15 units of long-acting insulin tonightas he received Levemir today morning. With these instructions patient will be discharged although high risk for readmission because of noncompliance with medications. Review of Systems REVIEW OF SYSTEMS: CONSTITUTIONAL: No fever, no malaise, no fatigue. HEENT: No recent visual problems or hearing problems. Denied any sore throat. CARDIOVASCULAR: No chest pain, orthopnea, PND, no palpitations, no syncope. PULMONARY: No shortness of breath, no cough, no hemoptysis. GASTROINTESTINAL: No diarrhea, no nausea, no vomiting, no abdominal pain. NEUROLOGICAL: No headaches, no weakness, no numbness. HEMATOLOGICAL: Denies any bleeding or petechiae. GENITOURINARY: Denies any burning micturition, frequency, or urgency. MUSCULOSKELETAL/RHEUMATOLOGICAL: Denies any joint pain, swelling, or any muscle pain. The rest of the 14-point review of systems is negative. Past Medical History Past Medical History: Diabetes Mellitus Additional Past Medical History / Comment(s): Patient is legally blind in left eye, peripheral neuropathy, history of noncompliance, history of smoking, previous history of DKA History of Any Multi-Drug Resistant Organisms: None Reported Past Surgical History: No Surgical Hx Reported Additional Past Surgical History / Comment(s): legally blind left eye. Past Anesthesia/Blood Transfusion Reactions: No Reported Reaction Additional Past Anesthesia/Blood Transfusion Reaction / Comment(s): NEVER HAD ANY Anesthsia Past Psychological History: Anxiety Smoking Status: Current every day smoker Past Alcohol Use History: Occasional Additional Past Alcohol Use History / Comment(s): pt. is a pack a day smoker Past Drug Use History: None Reported - Past Family History Father Family Medical History: No Reported History Additional Family Medical History / Comment(s): pt. unaware of any family history due to growing up in foster care Medications and Allergies Home Medications Medication Instructions Recorded Confirmed Type Insulin Aspart [NovoLOG Flexpen] See Protocol SQ AC-TID 04/16/19 05/30/19 History Insulin Glargine,Hum.rec.anlog 30 unit SQ HS #1 05/31/19 05/30/19 Rx [Basaglar Kwikpen U-100] Allergies Allergy/AdvReac Type Severity Reaction Status Date / Time No Known Allergies Allergy Verified 05/30/19 16:05 Physical Exam Vitals: Vital Signs Temp Pulse Resp BP Pulse Ox 05/31/19 09:00 82 13 95/58 94 L 05/31/19 08:05 98.5 F 90 14 97/79 97 05/31/19 07:50 99 05/31/19 07:00 95 9 L 95/57 98 05/31/19 06:00 78 14 104/64 97 05/31/19 05:00 74 15 104/64 98 05/31/19 04:00 98 F 79 13 89/46 97 05/31/19 03:00 85 15 97/43 97 05/31/19 02:00 84 15 96/54 97 05/31/19 01:00 90 20 95/51 96 05/31/19 00:00 97.9 F 84 15 92/60 97 05/30/19 23:00 86 16 95/58 96 05/30/19 22:00 92 18 97/63 97 05/30/19 21:00 92 20 97/63 97 05/30/19 20:00 98.1 F 96 16 100/57 100 05/30/19 19:42 97.4 F L 98 19 90/46 96 05/30/19 18:02 20 90/43 94 L 05/30/19 15:51 97.8 F 101 H 18 105/51 97 Intake and Output 05/30/19 05/31/19 05/31/19 22:59 06:59 14:59 Intake Total 523.236 0060.802 259.42 Output Total 1000 0 0 Balance -243.227 4503.802 259.42 Intake: IV 550 1200 250 D5-0.45% NaCl with KCl 150 1200 150 20Meq/l 1,000 ml @ 150 mls/hr IV .[id number] [facility] Rx# :[id number] D5-0.45% NaCl with KCl 100 20Meq/l 1,000 ml @ 50 mls /hr IV .Q20H [facility]UEL Rx#: [id number] Sodium Chloride 0.9% 1, 400 000 ml @ 200 mls/hr IV . Q5H [facility] Rx#:[id number] Intake, IV Titration 27.801 25.802 9.42 Amount Insulin Regular 100 unit 27.801 25.802 9.42 In Sodium Chloride 0.9% 100 ml @ 0.1 UNITS/KG/HR 7.284 mls/hr IV .[id number] SAMUEL Rx#:[id number] Output: Urine 1000 0 0 Other: Voiding Method Toilet Urinal # Voids 0 0 0 Weight 72.121 kg 55.8 kg 55.8 kg PHYSICAL EXAMINATION: GENERAL: The patient is alert and oriented x3, not in any acute distress. Well developed, well nourished. HEENT: Pupils are round and equally reacting to light. EOMI. No scleral icterus. No conjunctival pallor. Normocephalic, atraumatic. No pharyngeal erythema. No thyromegaly. CARDIOVASCULAR: S1 and S2 present. No murmurs, rubs, or gallops. PULMONARY: Chest is clear to auscultation, no wheezing or crackles. ABDOMEN: Soft, nontender, nondistended, normoactive bowel sounds. No palpable organomegaly. MUSCULOSKELETAL: No joint swelling or deformity. EXTREMITIES: No cyanosis, clubbing, or pedal edema. NEUROLOGICAL: Gross neurological examination did not reveal any focal deficits. SKIN: No rashes. Results CBC & Chem 7: 05/31/19 04:23 05/31/19 04:23 Labs: Abnormal Lab Results - Last 24 Hours (Table) 05/30/19 05/30/1905/30/19 Range/Units 16:22 16:22 16:22 WBC 13.5 H (3.8-10.6) k/uL Hgb (13.0-17.5) gm/dL Hct (39.0-53.0) % Neutrophils # 11.8 H (1.3-7.7) k/uL Sodium 130 L (137-145) mmol/L Potassium 6.0 H (3.5-5.1) mmol/L Chloride 96 L (98-107) mmol/L Carbon Dioxide 8 L* (22-30) mmol/L BUN 27 H (9-20) mg/dL Creatinine (0.66-1.25) mg/dL Glucose 681 H* (74-99) mg/dL POC Glucose (mg/dL) (75-99) mg/dL Alkaline Phosphatase 192 H (38-126) U/L Urine Glucose (UA) 4+ H (Negative) Urine Ketones 4+ H (Negative) 05/30/19 05/30/19 05/30/19 Range/Units 16:44 18:51 19:39 WBC (3.8-10.6) k/uL Hgb (13.0-17.5) gm/dL Hct (39.0-53.0) % Neutrophils # (1.3-7.7) k/uL Sodium (137-145) mmol/L Potassium (3.5-5.1) mmol/L Chloride (98-107) mmol/L Carbon Dioxide (22-30) mmol/L BUN (9-20) mg/dL Creatinine (0.66-1.25) mg/dL Glucose (74-99) mg/dL POC Glucose (mg/dL) >600 H 406 H 347 H (75-99) mg/dL Alkaline Phosphatase (38-126) U/L Urine Glucose (UA) (Negative) Urine Ketones (Negative) 05/30/19 05/30/19 05/30/19 Range/Units 20:21 20:44 21:47 WBC (3.8-10.6) k/uL Hgb (13.0-17.5) gm/dL Hct (39.0-53.0) % Neutrophils # (1.3-7.7) k/uL Sodium (137-145) mmol/L Potassium (3.5-5.1) mmol/L Chloride (98-107) mmol/L Carbon Dioxide 12 L (22-30) mmol/L BUN 25 H (9-20) mg/dL Creatinine 0.63 L (0.66-1.25) mg/dL Glucose 271 H (74-99) mg/dL POC Glucose (mg/dL) 273 H 196 H (75-99) mg/dL Alkaline Phosphatase (38-126) U/L Urine Glucose (UA) (Negative) Urine Ketones (Negative) 05/30/19 05/30/19 05/30/19 Range/Units 22:47 23:02 23:54 WBC (3.8-10.6) k/uL Hgb (13.0-17.5) gm/dL Hct (39.0-53.0) % Neutrophils # (1.3-7.7) k/uL Sodium (137-145) mmol/L Potassium (3.5-5.1) mmol/L Chloride (98-107) mmol/L Carbon Dioxide (22-30) mmol/L BUN (9-20) mg/dL Creatinine (0.66-1.25) mg/dL Glucose (74-99) mg/dL POC Glucose (mg/dL) 168 H 181 H 169 H (75-99) mg/dL Alkaline Phosphatase (38-126) U/L Urine Glucose (UA) (Negative) Urine Ketones (Negative) 05/31/19 05/31/19 05/31/19 Range/Units 00:28 01:00 02:08 WBC (3.8-10.6) k/uL Hgb (13.0-17.5) gm/dL Hct (39.0-53.0) % Neutrophils # (1.3-7.7) k/uL Sodium 135 L (137-145) mmol/L Potassium (3.5-5.1) mmol/L Chloride (98-107) mmol/L Carbon Dioxide 18 L (22-30) mmol/L BUN 21 H (9-20) mg/dL Creatinine 0.49 L (0.66-1.25) mg/dL Glucose 150 H (74-99) mg/dL POC Glucose (mg/dL) 145 H 129 H (75-99) mg/dL Alkaline Phosphatase (38-126) U/L Urine Glucose (UA) (Negative) Urine Ketones (Negative) 05/31/19 05/31/19 05/31/19 Range/Units 02:46 04:19 04:23 WBC (3.8-10.6) k/uL Hgb 12.3 L (13.0-17.5) gm/dL Hct 36.8 L (39.0-53.0) % Neutrophils # (1.3-7.7) k/uL Sodium (137-145) mmol/L Potassium (3.5-5.1) mmol/L Chloride (98-107) mmol/L Carbon Dioxide (22-30) mmol/L BUN (9-20) mg/dL Creatinine (0.66-1.25) mg/dL Glucose (74-99) mg/dL POC Glucose (mg/dL) 123 H 119 H (75-99) mg/dL Alkaline Phosphatase (38-126) U/L Urine Glucose (UA) (Negative) Urine Ketones (Negative) 05/31/19 05/31/19 05/31/19 Range/Units 04:23 05:04 06:15 WBC (3.8-10.6) k/uL Hgb (13.0-17.5) gm/dL Hct (39.0-53.0) % Neutrophils # (1.3-7.7) k/uL Sodium 135 L (137-145) mmol/L Potassium (3.5-5.1) mmol/L Chloride 108 H (98-107) mmol/L Carbon Dioxide 19 L (22-30) mmol/L BUN (9-20) mg/dL Creatinine 0.42 L (0.66-1.25) mg/dL Glucose 105 H (74-99) mg/dL POC Glucose (mg/dL) 108 H 104 H (75-99) mg/dL Alkaline Phosphatase (38-126) U/L Urine Glucose (UA) (Negative) Urine Ketones (Negative) 05/31/19 05/31/19 Range/Units 07:02 08:59 WBC (3.8-10.6) k/uL Hgb (13.0-17.5) gm/dL Hct (39.0-53.0) % Neutrophils # (1.3-7.7) k/uL Sodium (137-145) mmol/L Potassium (3.5-5.1) mmol/L Chloride (98-107) mmol/L Carbon Dioxide (22-30) mmol/L BUN (9-20) mg/dL Creatinine (0.66-1.25) mg/dL Glucose (74-99) mg/dL POC Glucose (mg/dL) 103 H 173 H (75-99) mg/dL Alkaline Phosphatase (38-126) U/L Urine Glucose (UA) (Negative) Urine Ketones (Negative) Thrombosis Risk Factor Assmnt - Choose All That Apply Any of the Below Risk Factors Present?: No Other Risk Factors: No Other congenital or acquired thrombophilia - If yes, enter type in comment: No Thrombosis Risk Factor Assessment Level: Very Low Risk Assessment and Plan Plan: -diabetic ketoacidosis: Precipitated byon compresses medications. Patient the was managed as mentioned above and patient will be discharged with the above- mentioned instructions -Anion gap and non-anion gap metabolic acidosis secondary to DKA and hyperchloremia respectively. -Hyperkalemia secondary to DKA which improved now -Diabetic retinopathy and neuropathy. -Type 1 diabetes mellitus with uncontrolled blood sugars and elevated blood sugars at home.
--- NOTE | 2019-05-31 11:49 | P.DS ---
Providers Date of admission: 05/30/19 18:03 Attending physician: Prateek Ordoñez MD Consults: 05/30/19 18:03 Consult Physician Urgent Consulting Provider: Aundrea Pitts Consult Reason/Comments: critical care Do you want consulting provider notified?: Yes Primary care physician: Nate Levin [place] [facility] Course: as mentioned in HPI Plan - Discharge Summary Discharge Rx Participant: No New Discharge Prescriptions: Continue Insulin Aspart [NovoLOG Flexpen] See Protocol SQ AC-TID Changed Insulin Glargine,Hum.rec.anlog [Basaglar Kwikpen U-100] 30 unit SQ HS #1 Discharge Medication List Insulin Aspart [NovoLOG Flexpen] See Protocol SQ AC-TID 04/16/19 [History] Insulin Glargine,Hum.rec.anlog [Basaglar Kwikpen U-100] 30 unit SQ HS #1 05/31/19 [Rx] Follow up Appointment(s)/Referral(s): Poonam Sullivan MD [Primary Care Provider] - 3 Days Rob Wynne MD [REFERRING] - 1 Week Patient Instructions/Handouts: Diabetic Ketoacidosis (DC), Basic Carbohydrate Counting (GEN) Discharge Disposition: HOME SELF-CARE
[2019-05-31 12:28] LABS: Glucose,Whole Blood 137 mg/dL (75-99)
[2019-05-31 14:43] LABS: Hemoglobin A1C 15.4 % (4.0-6.0)
== END 2019-05-31 14:38 | disposition home or self-care (01) | DRG 639 ==
LOC: EC 15:23 → 2SICU 18:03
PROVIDERS: ADMIT Internal Medicine; ATTEND Internal Medicine
DX: E10.10 Type 1 diabetes mellitus with ketoacidosis without coma (principal); E10.319 Type 1 diabetes mellitus with unspecified diabetic retinopathy without macular edema; E10.40 Type 1 diabetes mellitus with diabetic neuropathy, unspecified; E87.5 Hyperkalemia; F17.210 Nicotine dependence, cigarettes, uncomplicated; E87.8 Other disorders of electrolyte and fluid balance, not elsewhere classified; F41.9 Anxiety disorder, unspecified; H54.8 Legal blindness, as defined in USA; Z79.4 Long term (current) use of insulin; Z91.19 Patient's noncompliance with other medical treatment and regimen; T38.3X6A Underdosing of insulin and oral hypoglycemic [antidiabetic] drugs, initial encounter; Z91.128 Patient's intentional underdosing of medication regimen for other reason; Z60.2 Problems related to living alone
CPT/HCPCS: 36415; 71046; 80048; 80051; 80053; 81003; 82009; 82565; 82947; 83036; 84100; 84520; 85025; 93005; 96360; 96361; 99291